=== PATIENT | male | born 1955 | race Two or more races ===

== ENCOUNTER → 2022-12-28 | Emergency (ER) | payer OTHER ==
[~2022-12-28] VITALS: Ht 165.1 cm; Wt 86.2 kg
[~2022-12-28] MED LIST: PROTONIX40 MG
[2022-12-28 11:46] LABS: HEMATOCRIT 42.9 % (39.0-48.0); HEMOGLOBIN 14.4 g/dL (13-16.00); MEAN CELL VOLUME 91.7 fL (80.0-100.00); MEAN CORPUSCULAR HEMOGLOBIN 30.7 pg (27.00-32.0); MEAN CORPUSCULAR HGB CONC 33.5 g/dl (32.0-36.0); RED BLOOD COUNT 4.68 M/uL (4.00-6.00); RED CELL DISTRIBUTION WIDTH 14.1 % (11.5-14.5)
[2022-12-28 11:47] LABS: PLATELET COUNT 123 K/uL (150-450)
[2022-12-28 12:08] LABS: ALBUMIN 3.5 gm/dL (3.4-5.0); BILIRUBIN TOTAL 0.57 mg/dL (0.3-1.2); CALCIUM 8.8 mg/dL (8.5-10.1); CREATININE SERUM 1.03 mg/dL (0.70-1.30); GFR 72.48; GLOBULINA 3.9 G/DL (2.4-3.5); POTASSIUM 4.2 mEq/L (3.5-5.1); TOTAL PROTEIN 7.4 gm/dL (6.4-8.2)
[2022-12-28 12:09] LABS: PH,URINE 5.5 (5.0-8.0); URINE APPEARANCE Clear; URINE BILIRRUBIN Negative (NEGATIVE); URINE BLOOD Negative; URINE COLOR Yellow; URINE GLUCOSE Negative (NEGATIVE); URINE LEUKOCYTE Moderate; URINE NITRATE Negative; URINE PROTEIN Negative (NEGATIVE); URINE UROBILINOGEN 0.2 E.U./dl
[2022-12-28 12:13] LABS: URINE BACTERIA 61.6 uL (0.0-1933); URINE WBC 40.8 uL (0.0-23.2)
[2022-12-28 12:22] LABS: URINE EPITHELIAL CELLS 1.3 uL (0.0-38.8); URINE RBC 0.8 uL (0.0-20.8)
== END | disposition home or self-care (01) ==
LOC: ER 10:23
PROVIDERS: General Practice
DX: N39.0 Urinary tract infection, site not specified (principal)
CPT/HCPCS: 36415; 74240; 96372; 99284; J1885